=== PATIENT | female | born 1975 | race Caucasian/White ===

== ENCOUNTER → 2016-10-12 | Outpatient (CLI) | payer OTHER ==
[~2016-10-12] MED LIST: 'PARAFON FORTE500 M1 PO; ADVAIR DISKUS 11 DSK INH; ADVAIR DISKUS 51 DSK INH; ALBUTEROL 3 ML 33 ML INH; ALBUTEROL0.09 MG/A2 INH; ALPRAZOLAM0.5 M3 PO; AMOXICILLIN500 MG PO; ATIVAN1 MG PO; BUSPAR15 MG PO; CYMBALTA20 MG PO; CYMBALTA60 MG PO; FLEXERIL5 MG PO; GEODON40 MG PO; HYDROCODONE BIT1 T11 PO; K-Dur 20MEQ20 MEQ PO; LUVOX CR100 MG PO; MACROBID100 M1 PO; MOBIC7.5 MG PO; NORCO 5-325 TA1 EACH PO; ORPHENADRINE C100 M1 PO; PHENERGAN W/DM120 ML PO; PREDNICOT10 MG PO; PREDNISONE20 M1 PO; PRILOSEC20 M1 PO; PRILOSEC40 MG PO; PROAIR HFA0.09 MG/AC INH; THE MEDICINE S400 IU R; TORADOL10 MG PO; VENTOLIN H0.09 MG/AC INH; VENTOLIN0.09 MG/AC INH; VOLTAREN50 MG PO; WELLBUTRIN SR150 MG PO; ZOFRAN4 MG PO
== END | disposition home or self-care (01) ==
LOC: LAB 13:34
DX: Z51.81 Encounter for therapeutic drug level monitoring (principal); F32.9 Major depressive disorder, single episode, unspecified; F41.9 Anxiety disorder, unspecified; Z79.899 Other long term (current) drug therapy

== ENCOUNTER → 2017-09-27 | Outpatient (CLI) | payer OTHER | END | disposition home or self-care (01) | LOC: LAB 11:55 | DX: Z51.81 Encounter for therapeutic drug level monitoring (principal); Z79.899 Other long term (current) drug therapy ==

== ENCOUNTER 2018-08-02 10:11 | Emergency (ER) | payer OTHER ==
[~2018-08-02] VITALS: Ht 162.5 cm; Wt 70.3 kg
[~2018-08-02 10:11] MED LIST changes: +PERCOCET 5-3251 EACH PO
[2018-08-02] MEDS ORDERED: PREDNISONE50 MG PO (10:36)
== END 2018-08-02 10:47 | disposition home or self-care (01) ==
LOC: ED 10:11
DX: M77.12 Lateral epicondylitis, left elbow (principal); G56.02 Carpal tunnel syndrome, left upper limb; J45.909 Unspecified asthma, uncomplicated; Z88.6 Allergy status to analgesic agent; Z88.8 Allergy status to other drugs, medicaments and biological substances; Z79.899 Other long term (current) drug therapy; X58.XXXA Exposure to other specified factors, initial encounter; Y93.89 Activity, other specified; Y92.89 Other specified places as the place of occurrence of the external cause; Y99.0 Civilian activity done for income or pay

== ENCOUNTER 2018-12-02 16:02 | Emergency (ER) | payer OTHER ==
[~2018-12-02] VITALS: Ht 162.5 cm; Wt 61.2 kg
[~2018-12-02 16:02] MED LIST changes: +PREDNISONE50 MG PO
[2018-12-02] MEDS ORDERED: NARCAN4 MG NAS (16:23)
== END 2018-12-02 16:21 | disposition left against medical advice (07) ==
LOC: ED 16:02
DX: T40.2X1A Poisoning by other opioids, accidental (unintentional), initial encounter (principal); T40.601A Poisoning by unspecified narcotics, accidental (unintentional), initial encounter; R61 Generalized hyperhidrosis; Z88.8 Allergy status to other drugs, medicaments and biological substances; Z88.6 Allergy status to analgesic agent; Z79.899 Other long term (current) drug therapy; Y92.89 Other specified places as the place of occurrence of the external cause

== ENCOUNTER → 2019-05-22 | Outpatient (CLI) | payer OTHER ==
[~2019-05-22] MED LIST changes: +NARCAN4 MG NAS
== END | disposition home or self-care (01) ==
LOC: CARD 09:30
DX: R94.31 Abnormal electrocardiogram [ECG] [EKG] (principal)

== ENCOUNTER → 2019-12-26 | Outpatient (CLI) | payer OTHER | END | disposition home or self-care (01) | LOC: RAD 20:23 | PROVIDERS: ATTEND Chiropractor Orthopedic | DX: M99.01 Segmental and somatic dysfunction of cervical region (principal) ==

== ENCOUNTER 2024-09-03 13:08 | Emergency (ER) | payer SELFPAY ==
[~2024-09-03] VITALS: Ht 162.5 cm; Wt 80.3 kg
[2024-09-03] MEDS ORDERED: AMOX-CLAV 875-1 EACH PO ×2 (14:36→14:51)
[2024-09-03] MEDS ORDERED: Amoxicillin/Clavulanate Pota 875 MG TAB PO ONE (14:40)
== END 2024-09-03 14:56 | disposition home or self-care (01) ==
LOC: ED 13:08
DX: B34.9 Viral infection, unspecified (principal); H66.92 Otitis media, unspecified, left ear; J02.9 Acute pharyngitis, unspecified; J45.909 Unspecified asthma, uncomplicated; F32.A Depression, unspecified; F41.9 Anxiety disorder, unspecified; Z20.822 Contact with and (suspected) exposure to COVID-19; Z79.899 Other long term (current) drug therapy; Z88.6 Allergy status to analgesic agent; Z98.51 Tubal ligation status; Z98.890 Other specified postprocedural states